=== PATIENT | female | born 1960 | race Caucasian/White ===

== ENCOUNTER 2017-12-23 10:44 | Emergency (ER) | payer SELFPAY ==
[~2017-12-23] VITALS: Ht 170.2 cm; Wt 85.2 kg
[~2017-12-23 10:44] MED LIST: CEPH-368 PO; DICL100T PO; FLUO20CA19 PO; GABA600T PO; HYDR4TAB48 PO; METH500T97 PO; METH750T2 PO; MIRT30TA PO; MORP-52 PO; MORP15TA PO
[2017-12-23 10:46] VITALS: BP 137/82
[2017-12-23] MEDS ORDERED: CYCLOBENZAPRINE 10 MG TABLET ONE (11:02)
[2017-12-23] MEDS ORDERED: ACETAMINOPHEN 500 MG TABLET ONE (11:02)
[2017-12-23] MEDS ORDERED: IBUPROFEN 200 MG TABLET ONE (11:03)
[2017-12-23] MEDS: CYCLOBENZAPRINE 10 MG TABLET PO SCH ×2 (11:08→11:12)
[2017-12-23] MEDS ORDERED: ACETAMINOPHEN 500 MG TABLET PO ONE (12:00)
[2017-12-23] MEDS ORDERED: IBUPROFEN 200 MG TABLET PO ONE (12:00)
== END 2017-12-23 12:47 | disposition home or self-care (01) ==
LOC: ED 11:41
DX: S16.1XXA Strain of muscle, fascia and tendon at neck level, initial encounter (principal); S43.402A Unspecified sprain of left shoulder joint, initial encounter; S70.02XA Contusion of left hip, initial encounter; M19.90 Unspecified osteoarthritis, unspecified site; M54.9 Dorsalgia, unspecified; G89.29 Other chronic pain; F17.200 Nicotine dependence, unspecified, uncomplicated; F32.9 Major depressive disorder, single episode, unspecified; W01.0XXA Fall on same level from slipping, tripping and stumbling without subsequent striking against object, initial encounter; Y93.01 Activity, walking, marching and hiking; Y99.8 Other external cause status; Y92.009 Unspecified place in unspecified non-institutional (private) residence as the place of occurrence of the external cause
CPT/HCPCS: 72125; 99284

== ENCOUNTER 2018-06-27 13:39 | Inpatient (IN) | payer MEDICARE, OTHER ==
[~2018-06-27] VITALS: Ht 170.2 cm; Wt 89.9 kg
--- NOTE | 2018-06-27 15:05 | NUR ---
Pt to [facility] from [facility]. Here for mid-back pain after feeling sharp pain in that area during PT today. Pain level is currently 8/10. No neuro deficits, painful to ambulate.
[2018-06-27] MEDS ORDERED: KETOROLAC 30 MG/1 ML ONE (15:48)
[2018-06-27] MEDS ORDERED: KETOROLAC 30 MG/1 ML IM ONE (16:00)
[2018-06-27] MEDS ORDERED: METHOCARBAMOL 500 MG TABLET PO ONE (16:00)
--- NOTE | 2018-06-27 16:00 | NUR ---
X-ray complete. Medicated as per emar for 10 mid back pain. Pt has chronic back pain & already took her regularly scheduled opiates.
--- NOTE | 2018-06-27 16:40 | NUR ---
States pain in back has decreased & feels like she is able to move easier. Ready for ER MD recheck.
--- NOTE | 2018-06-27 17:35 | NUR ---
Pt ambulated to restroom with minimal assistance but stated the pain was too severe to go home & that she wanted to stay for inpatient admission. Request relayed to Dr. Flores.
[2018-06-27] MEDS ORDERED: SERT25TA3 PO (17:40)
--- NOTE | 2018-06-27 18:44 | NUR ---
Admit order placed, pt updated.
[2018-06-27 18:55] LABS: BASOPHILS # (AUTO) 0.03 x10^3/uL (0-0.1); BASOPHILS % (AUTO) 0 % (0-1); EOSINOPHILS # (AUTO) 0.25 x10^3/uL (0-0.4); EOSINOPHILS % (AUTO) 3 % (1-7); LYMPHOCYTES # (AUTO) 2.08 x10^3/uL (1-3.4); LYMPHOCYTES % (AUTO) 25 % (22-44); MD NO; MEAN CORPUSCULAR HEMOGLOBIN 31.6 pg (27.0-34.8); MEAN CORPUSCULAR HGB CONC 34.1 g/dL (32.4-35.8); MEAN CORPUSCULAR VOLUME 92.7 fL (80-100); MEAN PLATELET VOLUME 8.7 fL (7.4-10.4); MONOCYTES # (AUTO) 0.67 x10^3/uL (0.2-0.8); MONOCYTES % (AUTO) 8 % (2-9); NEUTROPHILS # (AUTO) 5.39 x10^3/uL (1.8-6.8); NEUTROPHILS % (AUTO) 64 % (42-75); PLATELET COUNT 291 x10^3/uL (130-400); RED BLOOD COUNT 5.34 x10^6/uL (3.82-5.3)
[2018-06-27] MEDS ORDERED: hydrALAzine 20 MG/ML, 1ML IVPush PRN (19:00)
[2018-06-27] MEDS ORDERED: ENOXAPARIN 40 MG/0.4 ML SQ SCH (19:00)
[2018-06-27 19:05] LABS: ALBUMIN 4.2 g/dL (3.4-5.0); ANION GAP 5 mmol/L (5-15); CALCIUM 9.4 mg/dL (8.5-10.1); CHLORIDE 107 mmol/L (98-107); CREATININE 0.88 mg/dL (0.55-1.02)
--- NOTE | 2018-06-27 19:07 | NUR ---
report from [facility]on assumed care of pt , awaiting admit bed
[2018-06-27 19:46] VITALS: BP 144/75
[2018-06-27] MEDS: CYCLOBENZAPRINE 10 MG TABLET PO SCH (20:07)
[2018-06-27] MEDS: GABAPENTIN 300 MG CAPSULE PO SCH (20:07)
[2018-06-27 21:21] VITALS: BP 114/70
[2018-06-28] MEDS: morphine SULFATE 10 MG/ML, 1ML IVPush PRN ×7 (01:38→12:32)
[2018-06-28 05:02] VITALS: BP 115/61
[2018-06-28 05:25] LABS: ALANINE AMINOTRANSFERASE 24 U/L (12-78); ALBUMIN 3.7 g/dL (3.4-5.0); ANION GAP 6 mmol/L (5-15); CALCIUM 8.9 mg/dL (8.5-10.1); CHLORIDE 108 mmol/L (98-107)
[2018-06-28 05:26] LABS: BASOPHILS # (AUTO) 0.04 x10^3/uL (0-0.1); BASOPHILS % (AUTO) 1 % (0-1); EOSINOPHILS # (AUTO) 0.27 x10^3/uL (0-0.4); EOSINOPHILS % (AUTO) 4 % (1-7); LYMPHOCYTES # (AUTO) 2.41 x10^3/uL (1-3.4); LYMPHOCYTES % (AUTO) 37 % (22-44); MD NO; MEAN CORPUSCULAR HEMOGLOBIN 31.5 pg (27.0-34.8); MEAN CORPUSCULAR HGB CONC 34.3 g/dL (32.4-35.8); MEAN CORPUSCULAR VOLUME 91.8 fL (80-100); MEAN PLATELET VOLUME 8.9 fL (7.4-10.4); MONOCYTES # (AUTO) 0.57 x10^3/uL (0.2-0.8); MONOCYTES % (AUTO) 9 % (2-9); NEUTROPHILS # (AUTO) 3.28 x10^3/uL (1.8-6.8); NEUTROPHILS % (AUTO) 50 % (42-75); PLATELET COUNT 247 x10^3/uL (130-400); RED BLOOD COUNT 5.01 x10^6/uL (3.82-5.3); RED CELL DISTRIBUTION WIDTH 14.2 % (9.6-15.2)
[2018-06-28 05:28] LABS: ALKALINE PHOSPHATASE 58 U/L (45-117); BILIRUBIN,TOTAL 0.6 mg/dL (0.2-1.0); CREATININE 0.79 mg/dL (0.55-1.02); TOTAL PROTEIN 6.5 g/dL (6.4-8.2)
[2018-06-28 07:42] VITALS: BP 105/69
[2018-06-28] MEDS: CYCLOBENZAPRINE 10 MG TABLET PO SCH (08:25)
[2018-06-28] MEDS: GABAPENTIN 300 MG CAPSULE PO SCH (08:28)
[2018-06-28] MEDS ORDERED: SERTRALINE 50MG TABLET PO SCH (09:00)
[2018-06-28] MEDS ORDERED: MIRTAZAPINE 30 MG TABLET PO SCH (09:00)
[2018-06-28 12:52] VITALS: BP 114/66
[2018-06-28 13:46] VITALS: BP 118/75
== END 2018-06-28 14:16 | disposition left against medical advice (07) | DRG 551 ==
LOC: ED 18:30 → EDIP 18:40 → 4NOR 19:35
PROVIDERS: ADMIT Family Medicine; ATTEND Family Medicine
DX: M51.36 Other intervertebral disc degeneration, lumbar region (principal); R53.2 Functional quadriplegia; M54.30 Sciatica, unspecified side; I10 Essential (primary) hypertension; Z96.653 Presence of artificial knee joint, bilateral; G89.29 Other chronic pain; F32.9 Major depressive disorder, single episode, unspecified; F17.200 Nicotine dependence, unspecified, uncomplicated; Z53.21 Procedure and treatment not carried out due to patient leaving prior to being seen by health care provider; Z79.01 Long term (current) use of anticoagulants; Z98.1 Arthrodesis status
CPT/HCPCS: 36415; 72110; 72148; 80048; 80053; 82040; 85025; 99285; G0378; J1885; J2270